=== PATIENT | female | born 1970 | race Caucasian/White ===

== ENCOUNTER 2017-11-12 18:24 | Emergency (ER) | payer BC ==
[~2017-11-12] VITALS: Ht 162.6 cm; Wt 77.0 kg
[~2017-11-12 18:24] MED LIST: ADAPALENE45 G1 TP; DIAZEPAM5 MG PO; FIORICET 50-301 EACH PO; HYDROCODON-ACE1 EAC7 PO; KLOR-CON; LIPITOR20 MG PO; MAXALT5 MG PO; MOTRIN800 MG PO; TOPIRAMATE100 MG PO; ZOFRAN ODT8 MG PO
[2017-11-12] MEDS ORDERED: MOTRIN800 MG PO (19:51)
[2017-11-12] MEDS ORDERED: COMPAZINE10 MG PO (19:51)
[2017-11-12] MEDS ORDERED: BENADRYL50 MG PO (19:57)
[2017-11-12 21:10] VITALS: BP 142/95
== END 2017-11-12 21:22 | disposition home or self-care (01) ==
LOC: EME 18:24
DX: R51 Headache (principal); Z86.69 Personal history of other diseases of the nervous system and sense organs; S06.0X0A Concussion without loss of consciousness, initial encounter; Z87.442 Personal history of urinary calculi; Z90.49 Acquired absence of other specified parts of digestive tract; Z98.890 Other specified postprocedural states; Z88.0 Allergy status to penicillin; Z88.2 Allergy status to sulfonamides
CPT/HCPCS: 99281; 99284; J0780; J1200; J1885